=== PATIENT | female | born 1995 | race African-American/Black ===

== ENCOUNTER 2023-06-23 14:20 | Emergency (ER) | payer OTHER ==
[~2023-06-23] VITALS: Ht 170.2 cm; Wt 65.8 kg
[2023-06-23] MEDS ORDERED: NORFLEX100MG PO (18:39)
[2023-06-23] MEDS ORDERED: KETO10TA2 PO (18:39)
== END 2023-06-23 19:08 | disposition home or self-care (01) ==
LOC: ER 14:20 → EDBD 14:20 → ER 16:23
DX: M25.562 Pain in left knee (principal)